=== PATIENT | female | born 1950 | race Caucasian/White ===

== ENCOUNTER 2017-09-25 19:53 | Emergency (ER) | payer BC ==
[2017-09-25 20:03] VITALS: BP 132/75
--- NOTE | 2017-09-25 20:37 | EDM.PDOC ---
ED HPI GENERAL MEDICAL PROBLEM - General Chief Complaint: Laceration Stated Complaint: laceration Time Seen by Provider: 09/25/17 20:18 Source of Information: Reports: Patient History Limitations: Reports: No Limitations - History of Present Illness INITIAL COMMENTS - FREE TEXT/NARRATIVE: Patient and moving some hinged furniture. She caught her left middle finger and lacerated near the distal tip. No other complaints. She does have some pressure on it. Would like it closed with glue and steri strips. Onset: Today, Sudden Location: Reports: Upper Extremity, Left Severity: Mild Improves with: Reports: None Worsens with: Reports: None Associated Symptoms: Reports: No Other Symptoms - Related Data Allergies Allergy/AdvReac Type Severity Reaction Status Date / Time No Known Drug Allergies Allergy Other Verified 09/25/17 19:58 Home Meds: Home Meds Levothyroxine Sodium 1 tab PO DAILY 09/26/14 [History] Propranolol HCl [Propranolol] 1 tab PO DAILY 09/26/14 [History] Venlafaxine HCl [Venlafaxine ER] 1 tab PO DAILY 09/26/14 [History] Venlafaxine HCl [Venlafaxine ER] 1 tab PO DAILY 09/26/14 [History] Past Medical History Cardiovascular History: Reports: Hypertension Psychiatric History: Reports: Depression Social & Family History - Tobacco Use Smoking Status *Q: Never Smoker ED ROS GENERAL - Review of Systems Review Of Systems: See Below Constitutional: Reports: No Symptoms HEENT: Reports: No Symptoms Respiratory: Reports: No Symptoms Cardiovascular: Reports: No Symptoms Endocrine: Reports: No Symptoms GI/Abdominal: Reports: No Symptoms : Reports: No Symptoms Musculoskeletal: Reports: No Symptoms Skin: Reports: Wound (to left middle finger) Neurological: Reports: No Symptoms Psychiatric: Reports: No Symptoms Hematologic/Lymphatic: Reports: No Symptoms Immunologic: Reports: No Symptoms ED EXAM, SKIN/RASH Exam: See Below Exam Limited By: No Limitations General Appearance: Alert, WD/WN, No Apparent Distress Extremities: Normal Inspection, Normal Range of Motion, Non-Tender, No Pedal Edema, Normal Capillary Refill Neurological: Alert, Oriented, CN II-XII Intact, Normal Cognition, Normal Gait, Normal Reflexes, No Motor/Sensory Deficits Psychiatric: Normal Affect, Normal Mood Skin: Wound/Incision Location, Skin: Other (left middle finger) Lymphatic: No Adenopathy Front/Back Body Diagram: 1 - 1 cm "c" shaped laceration to distal 3rd digit of left hand. To lateral side ED SKIN PROCEDURES - Laceration/Wound Repair Left Distal Finger Lac/Wound length In cm: 1 Appearance: Superficial Distal NVT: Neuro & Vascular Intact, No Tendon Injury Skin Prep: Chlorhexidine (Hibiciens) Exploration/Debridement/Repair: Wound Explored, In a Bloodless Field, No Foreign Material Found Closed with: Dermabond, Steri-Strips Tetanus Status Addressed: Yes Complications: No Course - Vital Signs Last Recorded V/S: Last Vital Signs Temp 36.4 C 09/25/17 20:00 Pulse 66 09/25/17 20:00 Resp 18 09/25/17 20:00 BP 132/75 09/25/17 20:00 Pulse Ox 95 09/25/17 20:00 Departure - Departure Time of Disposition: 20:36 Disposition: Home, Self-Care 01 Condition: Good Clinical Impression: Laceration of finger of left hand - Discharge Information Instructions: Laceration Care, Adult, [id number], Wound Infection, Easy-to- Read Referrals: Josephine Nesbitt DO [Primary Care Provider] - Additional Instructions: Please read the instructions I have provided for you. Keep the area clean and dry. You may shower, wash with soap and water. Keep dressing on for the next 48 hours, then remove. Try to keep dry. Watch for fever over 101.5F, increased redness, swelling, red streak up the hand and arm, or pus like drainage. These can be signs of infection. Do not submerge your wound in any water as this introduces bacteria. Please call with any questions or concerns. - Problem List & Annotations (1) Laceration of finger of left hand SNOMED Code(s): 976565388, 040865985 Code(s): S61.219A - LACERATION W/O FB OF UNSP FINGER W/O DAMAGE TO NAIL, INIT Status: Acute Priority: Low Current Visit: Yes Qualifiers: Encounter type: initial encounter Finger: middle finger Damage to nail status: without damage Foreign body presence: without foreign body Qualified Code(s): S61.213A - Laceration without foreign body of left middle finger without damage to nail, initial encounter - Problem List Review Problem List Initiated/Reviewed/Updated: Yes - Assessment/Plan Assessment:: laceration of left middle finger Plan: Please read the instructions I have provided for you. Keep the area clean and dry. You may shower, wash with soap and water. Keep dressing on for the next 48 hours, then remove. Try to keep dry. Watch for fever over 101.5F, increased redness, swelling, red streak up the hand and arm, or pus like drainage. These can be signs of infection. Do not submerge your wound in any water as this introduces bacteria. Please call with any questions or concerns.
== END 2017-09-25 20:50 | disposition home or self-care (01) ==
LOC: VM.ED 19:53
DX: S61.213A Laceration without foreign body of left middle finger without damage to nail, initial encounter (principal); I10 Essential (primary) hypertension; F32.9 Major depressive disorder, single episode, unspecified; Z79.899 Other long term (current) drug therapy; W23.1XXA Caught, crushed, jammed, or pinched between stationary objects, initial encounter
CPT/HCPCS: 12001; 99283

== ENCOUNTER 2018-12-21 08:43 | Emergency (ER) | payer MEDICARE, OTHER ==
[2018-12-21] MEDS ORDERED: Sodium Chloride 0.9% 1,000 ML IV ONE (09:07)
[2018-12-21] MEDS ORDERED: Sodium Chloride 0.9% 10 ML Syringe FLUSH PRN (09:07)
[2018-12-21] MEDS ORDERED: Morphine 4 MG/ML Syringe IVPUSH ONE (09:09)
[2018-12-21 09:10] VITALS: BP 166/73; PULSE 66
[2018-12-21] MEDS ORDERED: Ondansetron 4 MG/2 ML SDV IVPUSH ONE (09:11)
--- NOTE | 2018-12-21 09:17 | EDM.PDOC ---
ED HPI GENERAL MEDICAL PROBLEM - General Chief Complaint: Abdominal Pain Stated Complaint: ABDOMINAL PAIN Time Seen by Provider: 12/21/18 09:01 Source of Information: Reports: Patient, Family History Limitations: Reports: No Limitations - History of Present Illness INITIAL COMMENTS - FREE TEXT/NARRATIVE: Patient presents to ED with right upper quadrant pain, exacerbated after eating. Started this AM around 8 after having pizza and apple cake with butter and cream sauce. Slight nausea, has some radiation to the right side of her back. Feels sharp. Worse with movement. She denies chest pain, sob, fever, chills, blood in urine or stools. Normal voiding pattern with no burning or frequency. Denies prior HI, CVA, no cancer, lung disease. Denies medication allergies. Gall bladder and appendix still intact. Onset: Today, Sudden Duration: Intermittent Location: Reports: Abdomen Quality: Reports: Sharp Severity: Moderate Worsens with: Reports: Movement Associated Symptoms: Reports: Nausea/Vomiting Right Upper Abdomen Pain Score (Numeric/FACES): 8 - Related Data Allergies Allergy/AdvReac Type Severity Reaction Status Date / Time No Known Drug Allergies Allergy Other Verified 12/21/18 09:00 Home Meds: Home Meds Levothyroxine Sodium 1 tab PO DAILY 09/26/14 [History] Propranolol HCl [Propranolol] 1 tab PO DAILY 09/26/14 [History] Venlafaxine HCl [Venlafaxine ER] 1 tab PO DAILY 09/26/14 [History] Venlafaxine HCl [Venlafaxine ER] 1 tab PO DAILY 09/26/14 [History] Aspirin [Halfprin] 81 mg DAILY 12/21/18 [History] Cholecalciferol (Vitamin D3) [Vitamin D3] 1,000 units DAILY 12/21/18 [History] Cyanocobalamin/Cobamamide [Vitamin B-12 5,000 Mcg Tab Sl] 2,500 mg DAILY [History] Glucosamine [Glucosamine Sulfate] 1 tab DAILY 12/21/18 [History] Magnesium Oxide 400 mg DAILY 12/21/18 [History] Simvastatin 20 mg DAILY 12/21/18 [History] Ubidecarenone [Co Q10] 200 mg DAILY 12/21/18 [History] Past Medical History Cardiovascular History: Reports: Hypertension Psychiatric History: Reports: Depression ED ROS GENERAL - Review of Systems Review Of Systems: See Below Constitutional: Reports: No Symptoms HEENT: Reports: No Symptoms Respiratory: Reports: No Symptoms Cardiovascular: Reports: No Symptoms Endocrine: Reports: No Symptoms GI/Abdominal: Reports: Abdominal Pain, Nausea Musculoskeletal: Reports: Back Pain Skin: Reports: No Symptoms Neurological: Reports: No Symptoms Psychiatric: Reports: No Symptoms Hematologic/Lymphatic: Reports: No Symptoms Immunologic: Reports: No Symptoms ED EXAM, GI/ABD - Physical Exam Exam: See Below Exam Limited By: No Limitations General Appearance: Alert, WD/WN, Mild Distress Eyes: Bilateral: Normal Appearance, EOMI Ears: Normal TMs Nose: Normal Inspection, Normal Mucosa, No Blood Throat/Mouth: Normal Inspection, Normal Lips, Normal Teeth, Normal Gums, Normal Oropharynx, Normal Voice, No Airway Compromise Head: Atraumatic, Normocephalic Neck: Normal Inspection, Supple, Non-Tender, Full Range of Motion Respiratory/Chest: No Respiratory Distress, Lungs Clear, Normal Breath Sounds, No Accessory Muscle Use, Chest Non-Tender Cardiovascular: Normal Peripheral Pulses, Regular Rate, Rhythm, No Edema, No Gallop, No JVD, No Murmur, No Rub GI/Abdominal Exam: Normal Bowel Sounds, Soft, No Distention, Tender, Other ( reaves sign positive on exam) Back Exam: Normal Inspection. No: CVA Tenderness (L), CVA Tenderness (R) Extremities: Normal Inspection, Normal Range of Motion, Non-Tender, Normal Capillary Refill, No Pedal Edema Neurological: Alert, Oriented, CN II-XII Intact, Normal Cognition, Normal Gait, Normal Reflexes, No Motor/Sensory Deficits Psychiatric: Flat Affect Skin Exam: Warm, Dry, Intact, Normal Color, No Rash Lymphatic: No Adenopathy Course - Vital Signs Last Recorded V/S: Last Vital Signs Temp 35.5 C 12/21/18 08:43 Pulse 66 12/21/18 08:43 Resp 16 12/21/18 08:43 BP 166/73 H 12/21/18 08:43 Pulse Ox 96 12/21/18 08:43 - Orders/Labs/Meds Orders: Active Orders 24 hr Category Date Time Status Abdomen Pelvis w Cont [CT] Stat Exams 12/21/18 09:08 Ordered AMYLASE [CHEM] Stat Lab 12/21/18 09:07 Ordered C-REACTIVE PROTEIN [CHEM] Stat Lab 12/21/18 09:08 Ordered CBC WITH AUTO DIFF [HEME] Stat Lab 12/21/18 09:07 Ordered COMPREHENSIVE METABOLIC PN,CMP [CHEM] Stat Lab 12/21/18 09:07 Ordered LIPASE [CHEM] Stat Lab 12/21/18 09:07 Ordered MAGNESIUM [CHEM] Stat Lab 12/21/18 09:07 Ordered TROPONIN I [CHEM] Stat Lab 12/21/18 09:07 Ordered TSH ULTRASENSITIVE [CHEM] Stat Lab 12/21/18 09:10 Ordered Ondansetron [Zofran] Med 12/21/18 09:11 Once 4 mg IVPUSH ONETIME ONE Sodium Chloride 0.9% @ Wide Open(1,000ml) Med 12/21/18 09:07 Ordered Sodium Chloride 0.9% [Normal Saline] 1,000 ml IV ONETIME Sodium Chloride 0.9% [Saline Flush] Med 12/21/18 09:07 Ordered 10 ml FLUSH ASDIRECTED PRN Saline Lock Insert [OM.PC] Routine Oth 12/21/18 09:07 Ordered Medication Orders Sodium Chloride (Normal Saline) 1,000 mls @ 999 mls/hr IV ONETIME ONE Stop: 12/21/18 10:07 Ondansetron HCl (Zofran) 4 mg IVPUSH ONETIME ONE Stop: 12/21/18 09:12 Sodium Chloride (Saline Flush) 10 ml FLUSH ASDIRECTED PRN PRN Reason: Keep Vein Open Meds: Medications Generic Name Dose Route Start Last Admin Trade Name Freq PRN Reason Stop Dose Admin Sodium Chloride 1,000 mls @ 999 mls/hr 12/21/18 09:07 Normal Saline IV 12/21/18 10:07 ONETIME ONE Ondansetron HCl 4 mg 12/21/18 09:11 Zofran IVPUSH 12/21/18 09:12 ONETIME ONE Sodium Chloride 10 ml 12/21/18 09:07 Saline Flush FLUSH ASDIRECTED PRN Keep Vein Open Discontinued Medications Generic Name Dose Route Start Last Admin Trade Name Freq PRN Reason Stop Dose Admin Morphine Sulfate 4 mg 12/21/18 09:09 Morphine IVPUSH 12/21/18 09:10 ONETIME ONE - Radiology Interpretation Free Text/Narrative:: CT results show cholelithiasis with no obstruction or cholecystitis Departure - Departure Time of Disposition: 11:26 Disposition: Home, Self-Care 01 Condition: Good Clinical Impression: Cholelithiasis - Discharge Information *PRESCRIPTION DRUG MONITORING PROGRAM REVIEWED*: No *COPY OF PRESCRIPTION DRUG MONITORING REPORT IN PATIENT BENNY: No Instructions: Cholelithiasis, [id number], Cholecystitis, [id number], Gallbladder Eating Plan Additional Instructions: Plan 1. Stay well hydrated 2. Follow up with Dr. Nesbitt to discuss possible elective surgery for the removal of your gall bladder if symptoms continue 3. You do have cholelithiasis with a dilated gall bladder. No signs of acute cholecystitis. No bile duct blockage. You have normal liver function tests, normal white blood cell count, and no increase in inflammatory markers. Management can include 800 mg ibuprofen every 8 hours 4. If this does not resolve your pain or it increases, return to the ED for additional testing 5. You can usually meet with surgery on an outpatient basis to have elective removal of your gall bladder in your particular case 6. Please call the ED if you have any additional questions or concerns - Problem List & Annotations (1) Cholelithiasis SNOMED Code(s): 239812750 Code(s): K80.20 - CALCULUS OF GALLBLADDER W/O CHOLECYSTITIS W/O OBSTRUCTION Status: Acute Priority: Medium Current Visit: Yes Qualifiers: Cholelithiasis location: gallbladder Cholecystitis presence: without cholecystitis Biliary obstruction: without biliary obstruction Qualified Code(s): K80.20 - Calculus of gallbladder without cholecystitis without obstruction - Problem List Review Problem List Initiated/Reviewed/Updated: Yes - My Orders Last 24 Hours: My Active Orders 12/21/18 09:07 AMYLASE [CHEM] Stat CBC WITH AUTO DIFF [HEME] Stat COMPREHENSIVE METABOLIC PN,CMP [CHEM] Stat LIPASE [CHEM] Stat MAGNESIUM [CHEM] Stat TROPONIN I [CHEM] Stat Sodium Chloride 0.9% @ Wide Open(1,000ml) Sodium Chloride 0.9% [Normal Saline] 1 ,000 ml IV ONETIME Sodium Chloride 0.9% [Saline Flush] 10 ml FLUSH ASDIRECTED PRN Saline Lock Insert [OM.PC] Routine 12/21/18 09:08 Abdomen Pelvis w Cont [CT] Stat C-REACTIVE PROTEIN [CHEM] Stat 12/21/18 09:10 TSH ULTRASENSITIVE [CHEM] Stat 12/21/18 09:11 Ondansetron [Zofran] 4 mg IVPUSH ONETIME ONE - Assessment/Plan Last 24 Hours: My Active Orders 12/21/18 09:07 AMYLASE [CHEM] Stat CBC WITH AUTO DIFF [HEME] Stat COMPREHENSIVE METABOLIC PN,CMP [CHEM] Stat LIPASE [CHEM] Stat MAGNESIUM [CHEM] Stat TROPONIN I [CHEM] Stat Sodium Chloride 0.9% @ Wide Open(1,000ml) Sodium Chloride 0.9% [Normal Saline] 1 ,000 ml IV ONETIME Sodium Chloride 0.9% [Saline Flush] 10 ml FLUSH ASDIRECTED PRN Saline Lock Insert [OM.PC] Routine 12/21/18 09:08 Abdomen Pelvis w Cont [CT] Stat C-REACTIVE PROTEIN [CHEM] Stat 12/21/18 09:10 TSH ULTRASENSITIVE [CHEM] Stat 12/21/18 09:11 Ondansetron [Zofran] 4 mg IVPUSH ONETIME ONE Assessment:: cholelithiasis without biliary blockage or cholecystitis Plan: Plan 1. Stay well hydrated 2. Follow up with Dr. Nesbitt to discuss possible elective surgery for the removal of your gall bladder if symptoms continue 3. You do have cholelithiasis with a dilated gall bladder. No signs of acute cholecystitis. No bile duct blockage. You have normal liver function tests, normal white blood cell count, and no increase in inflammatory markers. Management can include 800 mg ibuprofen every 8 hours 4. If this does not resolve your pain or it increases, return to the ED for additional testing 5. You can usually meet with surgery on an outpatient basis to have elective removal of your gall bladder in your particular case 6. Please call the ED if you have any additional questions or concerns
[2018-12-21 09:55] LABS: ANION GAP 11.9 mmol/L (10-20); CHLORIDE,CL 108 mmol/L (98-107); SODIUM,NA 146 mmol/L (136-145)
--- NOTE | 2018-12-21 10:49 | CT ---
[id number] CT/CT Abdomen Pelvis W IV EXAM: CT Abdomen Pelvis W IV CLINICAL DATA: RIGHT UPPER QUADRANT PAIN, NAUSEA. COMPARISON STUDY: None. FINDINGS: Cholelithiasis with a dilated gallbladder. Common bile duct is normal in caliber. Liver, spleen, adrenal glands, pancreas, and kidneys are unremarkable. No small bowel obstruction inflammation. No colitis or diverticulitis. Appendix is normal. No lymphadenopathy, free fluid, or pneumoperitoneum. Uterus is unremarkable. Multiple closely approximated cystic structures in the right adnexal region. Structures measures 36 x 62 x 38 mm. This could represent either a complex loculated cystic mass versus closely approximated ovarian cyst. Hydrosalpinx is also possible. Scattered changes of spondylosis the spine. No fracture or osseous lesion. IMPRESSION: Cholelithiasis without radiographic evidence of acute cholecystitis. In the clinical setting of right upper quadrant pain, correlate with LFTs and possibly ultrasound as clinically warranted. Abnormal cystic mass in the right adnexal region, described above with differential diagnosis. Manolo Collins MD 12/21/18 1048 Thank you for allowing us to participate in the care of your patient.
[2018-12-21] MEDS ORDERED: Ketorolac 30 MG/ML SDV IVPUSH ONE (11:10)
[2018-12-21] MEDS ORDERED: Iopamidol 612 MG/ML 100 ML Bottle IVPUSH ONE (11:20)
== END 2018-12-21 11:31 | disposition home or self-care (01) ==
LOC: VM.ED 08:43
DX: K80.20 Calculus of gallbladder without cholecystitis without obstruction (principal); I10 Essential (primary) hypertension; Z79.899 Other long term (current) drug therapy; Z79.890 Hormone replacement therapy; Z79.82 Long term (current) use of aspirin
CPT/HCPCS: 74177; 80053; 81001; 82150; 83690; 83735; 84443; 84484; 85025; 86140; 96361; 96374; 96375; 99284; J1885; J2270; J2405; J7030; Q9967

== ENCOUNTER 2021-10-09 10:09 | Emergency (ER) | payer MEDICARE, OTHER ==
[2021-10-09] MEDS ORDERED: Sodium Chloride 0.9% 1,000 ML IV ONE (10:22)
[2021-10-09] MEDS ORDERED: fentaNYL 50 MCG/ML SDV IVPUSH ONE (10:22)
[2021-10-09] MEDS ORDERED: cloNIDine 0.1 MG Tab PO ONE (10:48)
[2021-10-09] MEDS ORDERED: Ondansetron 4 MG/2 ML SDV IVPUSH ONE (10:50)
[2021-10-09 10:53] LABS: ANION GAP 13.4 mmol/L (5-15); CHLORIDE,CL 103 mmol/L (98-107); ESTIMATED GFR > 60; SODIUM,NA 140 mmol/L (136-145)
[2021-10-09 11:12] LABS: HEMOGLOBIN A1C 6.8 % (<5.7)
[2021-10-09] MEDS ORDERED: Iopamidol 612 MG/ML 100 ML Bottle IVPUSH ONE (11:25)
[2021-10-09 12:35] VITALS: BP 176/69; PULSE 45
== END 2021-10-09 13:12 | disposition home or self-care (01) ==
LOC: VM.ED 10:09
DX: K80.20 Calculus of gallbladder without cholecystitis without obstruction (principal); I10 Essential (primary) hypertension; E03.9 Hypothyroidism, unspecified; Z79.899 Other long term (current) drug therapy; Z79.82 Long term (current) use of aspirin
CPT/HCPCS: 74177; 80053; 81001; 82150; 83036; 83690; 85025; 86140; 87086; 96361; 96374; 96375; 99284; A9270; J2405; J3010; J7030; Q9967